=== PATIENT | female | born 1970 | race Caucasian/White ===

== ENCOUNTER 2016-12-26 09:13 | Outpatient (CLI) | payer OTHER | END 2016-12-26 20:59 | disposition home or self-care (01) | LOC: SMA 09:13 | PROVIDERS: ATTEND Family Medicine | DX: N63 Unspecified lump in breast (principal) | CPT/HCPCS: 76641; G0204; G0206 ==

== ENCOUNTER 2018-09-25 09:49 | Outpatient (CLI) | payer OTHER | END 2018-09-25 21:20 | disposition home or self-care (01) | LOC: SMA 09:49 | PROVIDERS: ATTEND Physician Assistant Medical | DX: N63.20 Unspecified lump in the left breast, unspecified quadrant (principal); N63.10 Unspecified lump in the right breast, unspecified quadrant | CPT/HCPCS: 76641; 77066 ==

== ENCOUNTER 2021-09-23 08:49 | Outpatient (CLI) | payer OTHER | END 2021-09-23 19:43 | disposition home or self-care (01) | LOC: SMA 08:49 | PROVIDERS: ATTEND Family Medicine | DX: N63.10 Unspecified lump in the right breast, unspecified quadrant (principal); R92.2 Inconclusive mammogram | CPT/HCPCS: 76642; 77066 ==

== ENCOUNTER 2023-01-15 10:49 | Outpatient (CLI) | payer OTHER | END 2023-01-15 21:04 | disposition home or self-care (01) | LOC: SMA 10:49 | PROVIDERS: ATTEND Physician Assistant Medical | DX: R92.2 Inconclusive mammogram (principal); N63.0 Unspecified lump in unspecified breast | CPT/HCPCS: 76642; 77066 ==